=== PATIENT | female | born 1995 | race Caucasian/White ===

== ENCOUNTER 2017-08-07 06:00 | Inpatient (IN) ==
[2017-08-07] MEDS ORDERED: *HR* Nalbuphine 10 MG/ML AMPUL IVP PRN (06:58)
[2017-08-07] MEDS ORDERED: Naloxone 0.4 MG/ML INJ IVP PRN (06:58)
[2017-08-07] MEDS ORDERED: Metoclopramide 10 MG/2 ML VIAL IVP PRN (06:58)
[2017-08-07] MEDS ORDERED: Famotidine 20 MG/2 ML VIAL IVP PRN (06:58)
[2017-08-07] MEDS ORDERED: Ondansetron 4 MG/2 ML VIAL IVP PRN (06:58)
[2017-08-07] MEDS ORDERED: Ringers Solution, Lactated 1,000 ML IVC SCH (07:00)
[2017-08-07 07:13] LABS: Basophils % 0.2 %; Eosinophils # 0.1 K/mcL (0.0-0.6); Eosinophils % 1.2 %; Hematocrit 34.9 % (35.3-44.9); Hemoglobin 11.8 g/dL (11.5-15.4); Immature Granulocytes % 1.6 % (0-4); Immature Platelets 5.7 % (1.1-6.1); Lymphocytes # 2.7 K/mcL (0.6-4.6); Lymphocytes % 24.4 %; Mean Corpuscular HGB Conc 33.8 g/dL (31.6-35.5); Mean Corpuscular Hemoglobin 29.9 pg (28.0-33.3); Mean Corpuscular Volume 88.6 fL (83.0-100.0); Monocytes % 8.6 %; Neutrophils # 7.1 K/mcL (1.6-8.9); Platelet Count 159 K/mcL (140-400); Red Blood Count 3.94 M/mcL (3.82-4.97); Red Cell Distribution Width 14.1 % (11.5-14.5)
[2017-08-07 07:30] LABS: Amphetamine Screen,Urine Negative ng/mL (Cutoff=1000); Barbiturate Screen,Urine Negative ng/mL (Cutoff=200); Benzodiazepines Screen,Urine Negative ng/mL (Cutoff=200); Cannabinoid Screen,Urine Negative ng/mL (Cutoff = 50); Cocaine Screen,Urine Negative ng/mL (Cutoff= 300); Opiate Screen,Urine Negative ng/mL (Cutoff=300); Phencyclidine Screen,Urine Negative ng/mL (Cutoff=25)
--- NOTE | 2017-08-07 09:20 | OB/GYN History & Physical ---
Date of Encounter: 08/07/17 Time of Encounter: 09:16 Assessment and Plan (1) 41 weeks gestation of Current visit: Yes Status: Acute 39 female presents for induction of labor at 41weeks gestation. has been uncomplicated. 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 Expect . History of Present Illness Chief complaint: Here for induction HPI: Ms. Frank is a 21 year old female Past Med Surg Social Fam HX - Past Medical History Medical history: no medical history Psychiatric history: no psych history - Past Surgical History Additional surgical history: leep wisdom teeth - Social History Smoking Status: Current every day smoker Packs per day: 5 Smokeless Tobacco Status: No Alcohol use: none Drug use: none - Family History Mother Adopted: No Family Member Ethnicity: Non- Living Status: Still Living Hx Family Cardiac Disorders: No Hx Family Respiratory Disorders: No Hx Family Cancer: No Hx Family GI Disorders: No Hx Family Genitourinary Disorders: No Hx Family Endocrine Disorder: No Hx Family Musculoskeletal Disorders: No Hx Family Neuromuscular Disorders: No Hx Family Neurologic Disorders: No Hx Family HEENT Disorders: No Hx Family Autoimmune Disorders: No Hx Family Reproductive Disorders: No Hx Family Psychosocial Disorders: No Hx Family Medical Disorders: No Obstetrical History - Pregnancies : 3 Medications and Allergies Pnv Cmb#21/Iron/Folic Acid [ Complete Caplet] 1 tab PO DAILY 08/07/17 [ History] 3 Allergy/AdvReac Type Severity Reaction Status Date / Time No Known Allergies Allergy Verified 08/07/17 07:05 Exam - Constitutional Constitutional: well developed, no acute distress - HEENT HEENT: EOMI, PERRL - Neck Neck exam: full ROM - Lungs Respiratory exam: CTAB - Cardiovascular Cardiovascular exam: RRR - Abdomen Abdomen: Present: gravid - Extremities Extremities exam: full ROM Deep Tendon Reflex Grade: 2+ Normal - Cervix Dilation: 1 Effacement: 80 Station: -2 - Uterus Uterus exam: Present: normal size Results Result Diagrams: 08/07/17 07:00 Abnormal lab results Hct 34.9 % (35.3-44.9) L 08/07/17 07:00 All other labs normal.
--- NOTE | 2017-08-07 09:23 | Anesthesia Evaluation PreOp ---
Date of Encounter: 08/07/17 Time of Encounter: 09:20 - Past History Planned Operation: nikko Cardiac History: Denies any Significant Hx Pulmonary History: Smoker (1 ppd for 3 years) [employer] DEVELOPER History: Denies Any Significant HX Other Medical History: Denies Any Significant HX Anesthesia History: No Prior Anesthetic Complications, Past Anesthesia (wisdom teeth and LEEP) : Yes (41 weeks, ) Alcohol Use: none Drug use: none Medications and Allergies Pnv Cmb#21/Iron/Folic Acid [ Complete Caplet] 1 tab PO DAILY 08/07/17 [ History] 3 Allergy/AdvReac Type Severity Reaction Status Date / Time No Known Allergies Allergy Verified 08/07/17 07:05 - Meds/Allergy Pre-op Review Medications Reviewed: Yes Allergies Reviewed: Yes Beta Blockers on Current Med List: No Anesthesia Results - Labs 08/07/17 07:00 Anesthesia Exam O2 Sat Height 1.75 m Weight 79.9 kg Height: 69 Weight: 176 - HEENT Pupil (Motor): Pupils equal Mallampati: II Teeth: Normal Oral Opening: Greater than 3 - [employer] DEVELOPER LOC: Oriented [employer]ELOPER Motor: Normal RUE, Normal LUE, Normal RLE, Normal LLE, Normal Face [employer]ELOPER Sensory: Normal: RUE, LUE, RLE, LLE, Face - Cardiac Rhythm: Regular Murmur: None JVD: No Carotid Bruit: No - Pulmonary Breath Sounds: bilateral Clear Respiratory Effort: Symmetrical Anesthesia Assess/Plan ASA Score: 2 Modified Austin Scale for Level of Consciousness: Cooperative, oriented, and tranquil Anesthetic Plan: Regional Monitoring Plan: Standard Monitors
[2017-08-07] MEDS ORDERED: *HR* FentaNYL (PF) 100 MCG/2 ML VIAL ONE (11:06)
[2017-08-07] MEDS ORDERED: Epidural Premix (fent/bupiv) 110 ML EP ONE (11:06)
[2017-08-07] MEDS ORDERED: *HR* Ropivacaine/PF 0.2% 20 ML VIAL ONE (11:06)
[2017-08-07] MEDS ORDERED: *HR* FentaNYL (PF) 100 MCG/2 ML VIAL EP ONE (11:32)
[2017-08-07] MEDS ORDERED: EPHEDrine 50 MG/ML VIAL IVP PRN (11:32)
[2017-08-07] MEDS ORDERED: *HR* Ropivacaine/PF 0.2% 20 ML VIAL EP ONE (11:32)
--- NOTE | 2017-08-07 11:35 | Anesthesia Procedures ---
Date of Encounter: 08/07/17 Time of Encounter: 11:33 Procedures: Anesthesia - Epidural/Spinal Patient ID/Chart reviewed: Yes Patient examined: Yes OB Eval: Gestational age: 39 OB Eval: : 3 OB Eval: Hx Para: 1 OB Eval: Contractions: Non-stressed pattern Consent Obtained: Yes Supplemental Oxygen: None/Room Air Site Prep: Aseptic Technique, 0.5% Chlorhexidine/Alcohol Patient position: upright Local Anesthetic: Lidocaine 1% Amount of Local Anesthetic used: 2 Touhy Needle Gauge: 18 Touhy Needle Depth (cm): 4 Catheter Depth at Skin (cm): 12 Test Dose (1.5% Lido + Epi): Volume given (mls): 3 Test Dose Result: Negative Loading Dose: 0.25% Marcaine (mls): 6 Loading Dose: Fentanyl (mcg): 100 Loading Dose Administered: Thru Touhy Needle Infusion Med: 0.125% Bupivacaine w/ 2 mcg/ml Fentanyl Infusion Rate (mls/hr): [address]: Tegaderm Interspace Used: L3-L4 Loss of Resistance (BIRDIE): Yes Blood: No CSF: No Paresthesia: No
[2017-08-07] MEDS ORDERED: Epidural Premix (fent/bupiv) 110 ML EP SCH (11:45)
[2017-08-07] MEDS ORDERED: miSOPROStol 25 MCG TABLET PO SCH (12:00)
[2017-08-07] MEDS ORDERED: Rho Immune Globulin 1,500 UNIT SYRINGE IM PRN (17:33)
[2017-08-07] MEDS ORDERED: Acetaminophen 325 MG TABLET PO PRN (17:33)
[2017-08-07] MEDS ORDERED: Measles/Mumps/Rubella Vacc 0.5 ML VIAL SQ PRN (17:33)
--- NOTE | 2017-08-07 17:43 | OB/GYN Procedure Note ---
Delivery - Delivery Date: 08/07/17 Provider: Gerald Mclean Intrapartum events: none Delivery induction: AROM, samaniego, misoprostol Delivery monitor: external FHT, external uterine Anesthesia: epidural Quantitated Blood Loss: 100 - (s) Infant A Delivery Date: 08/07/17 Delivery Time: 16:57 Presentation: vertex Position: KYLE Gender: Male Viability: Viable Weight Gram: 3.25 kg at 1 minute: 9 at 5 mins: 9 Shoulder Dystocia: not encountered Specimens collected: cord blood Placenta: spontaneous Cord: 3 umbilical vessels - Repair Episiotomy: none Laceration Description: Perineal - 1st Degree - Complications Delivery complications: none - Disposition Mom disposition: stable in LDR [place] disposition: stable in LDR - Comments Comments: Pt s/p of liveborn male infant without complications. Spontaneous delivery of normal placenta with 3 vc. 1st degree laceration repaired with 3-0 vicryl with one stitch. EBL 100. Mother and infant recovered in LDR.
[2017-08-07] MEDS ORDERED: Oxytocin 20 units/ LR 1000 mL 20 UNIT/1,000 ML BAG IVC SCH (17:45)
[2017-08-07] MEDS ORDERED: Ibuprofen 600 MG TABLET PO PRN (20:38)
[2017-08-07] MEDS: Acetaminophen 325 MG TABLET PO PRN (21:07)
[2017-08-08 05:03] LABS: Basophils % 0.1 %; Eosinophils # 0.1 K/mcL (0.0-0.6); Eosinophils % 0.8 %; Immature Granulocytes % 0.8 % (0-4); Lymphocytes # 2.3 K/mcL (0.6-4.6); Mean Corpuscular HGB Conc 34.4 g/dL (31.6-35.5); Mean Corpuscular Hemoglobin 30.3 pg (28.0-33.3); Mean Corpuscular Volume 88.2 fL (83.0-100.0); Mean Platelet Volume 11.2 fL (9.4-12.4); Monocytes # 1.2 K/mcL (0.0-1.3); Monocytes % 8.2 %; Neutrophils # 10.8 K/mcL (1.6-8.9); Platelet Count 140 K/mcL (140-400); Red Blood Count 3.63 M/mcL (3.82-4.97); Segmented Neutrophils % 74.1 %
[2017-08-08 07:59] VITALS: BP 108/63
--- NOTE | 2017-08-08 08:28 | Discharge Summary ---
Date of Encounter: 08/08/17 Time of Encounter: 08:26 - Discharge Diagnosis (1) Vaginal delivery Priority: Primary Status: Acute Comments: Stable, meeting PP milestones, Pain managed on PO pain medication, bleeding minimal, bottle feeding, desires discharge. - Discharge Medications Home Medications: Pnv Cmb#21/Iron/Folic Acid [ Complete Caplet] 1 tab PO DAILY 08/07/17 [ History] Ibuprofen [Motrin] 600 mg PO Q6HR PRN tablet 08/08/17 [Rx] Vit/FA 1 each PO DAILY tablet 08/08/17 [Rx] Allergies/Adverse Reactions: 3 Allergy/AdvReac Type Severity Reaction Status Date / Time No Known Allergies Allergy Verified 08/07/17 07:05 Data Procedures and tests throughout hospitalization: Laboratory Tests 08/07/17 08/07/17 08/08/17 07:00 07:00 04:39 WBC 11.1 14.5 H RBC 3.94 3.63 L Hgb 11.8 11.0 L Hct 34.9 L 32.0 L MCV 88.6 88.2 MCH 29.9 30.3 MCHC 33.8 34.4 RDW 14.1 14.0 Plt Count 159 140 MPV 11.0 11.2 Immature Gran % 1.6 0.8 Seg Neutrophils % 64.0 74.1 Lymphocytes % 24.4 16.0 Monocytes % 8.6 8.2 Eosinophils % 1.2 0.8 Basophils % 0.2 0.1 Neutrophils # 7.1 10.8 H Lymphocytes # 2.7 2.3 Monocytes # 1.0 1.2 Eosinophils # 0.1 0.1 Basophils # 0.0 0.0 Immature Plt Fraction 5.7 Urine Opiates Screen Negative Ur Barbiturates Screen Negative Ur Phencyclidine Scrn Negative Ur Amphetamines Screen Negative U Benzodiazepines Scrn Negative Urine Cocaine Screen Negative U Marijuana (THC) Screen Negative Ur Drug Screen Interp See Below Labs on day of discharge: Labs from last 24 hours 08/08/17 04:39 WBC 14.5 H RBC 3.63 L Hgb 11.0 L Hct 32.0 L MCV 88.2 MCH 30.3 MCHC 34.4 RDW 14.0 Plt Count 140 MPV 11.2 Immature Gran % 0.8 Seg Neutrophils % 74.1 Lymphocytes % 16.0 Monocytes % 8.2 Eosinophils % 0.8 Basophils % 0.1 Neutrophils # 10.8 H Lymphocytes # 2.3 Monocytes # 1.2 Eosinophils # 0.1 Basophils # 0.0 Date of admission: 08/07/17 06:35 Primary care physician: PCP NONE Discharging clinician: Stephanie Ward Anticipated date of discharge: 08/08/17 - Patient Status Disposition: Home, Self-Care Condition: Good Functional capacity at discharge: independent ambulation Overall status at discharge: patient is progressing back to baseline - Discharge Instructions Follow Up With: NONE,PCP [Primary Care Provider] - Gerald Mclean MD [Partnered Physician] - - Diet and Activity Activity: resume usual activities as tolerated Diet: regular diet Hospital Course Reason for admission: induction of labor, IUP at term Delivery: Episiotomy: none Laceration: 1st degree Other procedures: none complications: none Discharge diagnosis: IUP at term delivered baby: male Hospital course: Delivery - Delivery Date: 08/07/17 Provider: Gerald Mclean Intrapartum events: none Delivery induction: AROM, samaniego, misoprostol Delivery monitor: external FHT, external uterine Anesthesia: epidural Quantitated Blood Loss: 100 - (s) A Delivery Date: 08/07/17 Infant Delivery Time: 16:57 Presentation: vertex Position: KYLE Gender: Male Viability: Viable Weight Gram: 3.25 kg at 1 minute: 9 at 5 mins: 9 Shoulder Dystocia: not encountered Specimens collected: cord blood Placenta: spontaneous Cord: 3 umbilical vessels - Repair Episiotomy: none Laceration Description: Perineal - 1st Degree - Complications Delivery complications: none - Disposition Mom disposition: stable in PP and appropriate for discharge. Time Attestation: Total time spent providing and/or coordinating discharge services: Time Spent: Less than 30 minutes Exam - Constitutional Vitals: Temp Pulse Resp BP Pulse Ox 97.8 F 75 16 99/63 96 08/08/17 07:20 08/08/17 07:20 08/08/17 07:20 08/08/17 07:20 08/08/17 07:20 General appearance IM: A&O X 3 - Respiratory Respiratory exam: Present: stridor - Cardiovascular Cardiovascular exam IM: Present: RRR - GI/Abdominal GI/Abdominal exam IM: normal bowel sounds, soft - Uterine Tone: Firm Uterus Position: 1 Finger Below Umbilicus - Extremities Exam Extremities exam IM: Present: normal capillary refill, normal inspection - Neurological Exam Neurological exam: normal gait, oriented X3 - Psychiatric Additional comments: Reports good mood.
[2017-08-08] MEDS: Acetaminophen 325 MG TABLET PO PRN (08:52)
[2017-08-08] MEDS ORDERED: Prenatal Vit/FA 1 EACH TABLET PO SCH ×2 (09:00)
== END 2017-08-08 10:45 | disposition home or self-care (01) | DRG 560 ==
LOC: 1NENULAB 06:35 → 1NENUOBS 20:26
PROVIDERS: ADMIT Obstetrics & Gynecology; ATTEND Obstetrics & Gynecology